=== PATIENT | female | born 1935 | race African-American/Black ===

== ENCOUNTER 2017-01-08 20:16 | Emergency (ER) | payer OTHER, BC ==
[~2017-01-08 20:16] MED LIST: ATV.5 PO; CLARITD PO; KLOR-CON 1010 MEQ PO; L20 PO; LOP50 PO; MULTIPLE VIT PO; NORV10 PO; PRILOSEC OTC20 MG PO; TYLENOL 8 HR650 MG PO; VITAMIN B-121000 MC1 SL; VITAMIN D31000 UNIT PO
[2017-05-18] MEDS ORDERED: ATV.5 PO (20:24)
[2017-05-18] MEDS ORDERED: K-TABS10 MEQ PO (20:25)
[2017-05-18] MEDS ORDERED: L20 PO (20:25)
[2017-05-18] MEDS ORDERED: PRILOSEC OTC20 MG PO (20:25)
[2017-05-18] MEDS ORDERED: TOPXL50 PO (20:26)
[2017-05-18] MEDS ORDERED: CELEXA10 PO (20:26)
[2017-05-18] MEDS ORDERED: NORV10 PO (20:26)
[2017-05-18] MEDS ORDERED: IBRANCE (20:27)
[2017-05-18] MEDS ORDERED: VITAMIN B-121000 MC1 SL (20:28)
[2017-05-18] MEDS ORDERED: VITAMIN D31000 UNIT PO (20:28)
[2017-05-18] MEDS ORDERED: [UNRECOGNIZED DRUG - OTHER] PO (20:29)
[2017-05-18] MEDS ORDERED: ADVIL PO (20:30)
[2017-05-18] MEDS ORDERED: OS500+D PO (20:30)
[2017-05-18] MEDS ORDERED: MULTIPLE VIT PO (20:31)
[2017-05-18] MEDS ORDERED: FERROUS SULF325 M1 PO (20:31)
[2017-05-18] MEDS ORDERED: FASLODEX (20:35)
== END 2017-01-08 20:40 | disposition home or self-care (01) ==
LOC: ER 20:16
PROC: 2W3AX1Z Immobilization of Right Upper Arm using Splint (ICD-10-PCS; principal; 2017-01-08)
DX: S83.91XA Sprain of unspecified site of right knee, initial encounter (principal); S63.501A Unspecified sprain of right wrist, initial encounter; I10 Essential (primary) hypertension; Z88.0 Allergy status to penicillin; Z79.899 Other long term (current) drug therapy; V29.60XA Unspecified motorcycle rider injured in collision with unspecified motor vehicles in traffic accident, initial encounter
CPT/HCPCS: 73110-RT; 73560-RT; 99284